=== PATIENT | female | born 1985 | race Caucasian/White ===

== ENCOUNTER → 2018-09-09 | Outpatient (CLI) | payer OTHER ==
--- NOTE | 2018-09-20 09:11 | EM ---
EVENT MONITOR This is a 7 day event monitor. There are several recordings noted. Most of them were auto capture. There was no clear-cut symptoms, specifically there was no clear-cut recordings initiated by the patient. Sinus rhythm and sinus tachycardia were noted. There was no evidence of any significant tachy or bradyarrhythmias. There were isolated PACs noted. FINAL IMPRESSION: This is an unremarkable 7-day event monitor with sinus rhythm and sinus tachycardia. No significant arrhythmias were noted and apparently no symptoms were reported by the patient. ISAMAR / LOSN: [id number] /
== END | disposition home or self-care (01) ==
LOC: RADECHMAIN 12:40
PROVIDERS: ATTEND Family Medicine
DX: R00.0 Tachycardia, unspecified (principal)
CPT/HCPCS: 93270

== ENCOUNTER → 2019-06-16 | Outpatient (CLI) | payer OTHER ==
--- NOTE | 2019-06-16 14:45 | US ---
EXAMINATION TYPE: US soft tissue head/neck DATE OF EXAM: 06/16/2019 COMPARISON: NONE CLINICAL HISTORY: R59.0 ENLARGED LYMPH NODES. Palpable right submandibular glands noted x couple maximiliano hs Bilateral neck scanned: multiple lymph nodes seen with largest node right submandibular area at palpa ble = 3.5 x 1.4 x 0.9cm; largest left lymph node seen medial at submandibular area = 2.4 x 0.9 x 0.6c m. Prominent borderline enlarged right submandibular lymph nodes appears to be retention of normal fatty hilum, similar morphologically appearing but slightly smaller lymph nodes noted on the left side. IMPRESSION: As above. No definitive greater than 1 cm on short axis lymph nodes identified bilaterall y. If lymph nodes are felt to enlarge or growth from the investigation with repeat imaging would be a dvised.
== END | disposition home or self-care (01) ==
LOC: RADUSWWP 13:38
PROVIDERS: ATTEND Family Medicine
DX: R59.0 Localized enlarged lymph nodes (principal)
CPT/HCPCS: 76536